=== PATIENT | female | born 1950 | race Caucasian/White ===

== ENCOUNTER → 2022-02-22 | Outpatient (CLI) | LOC: M SOG 10:23 | PROVIDERS: ATTEND Physician Assistant | DX: M85.811 Other specified disorders of bone density and structure, right shoulder (principal); M85.812 Other specified disorders of bone density and structure, left shoulder; M19.011 Primary osteoarthritis, right shoulder; M19.012 Primary osteoarthritis, left shoulder ==

== ENCOUNTER 2022-03-23 06:11 | Observation (INO) | payer MEDICARE, OTHER ==
[~2022-03-23] VITALS: Ht 172.7 cm; Wt 103.5 kg
[~2022-03-23 06:11] MED LIST: AMLO1TAB24 PO; ASPI81TA26 PO; ATOR1TAB19 PO; AZAT50TA37 PO; CALC-218 PO; HYDR-3490 PO; HYDR200T3 PO; IBUP200C25 PO; LISI40TA4 PO; METF-839 PO; METF500T13 PO; POLYOPD OP; POTA1TAB14 PO; PRED20TA PO; ceFAZolin SOD 2 GM in IV 1 EA IV ONE
[2022-03-23] MEDS ORDERED: LR 1,000 ML IV SCH ×2 (06:40→11:15)
[2022-03-23] MEDS ORDERED: INSULIN LISPRO (NovoLOG) PER UNIT SC PRN (06:40)
[2022-03-23] MEDS ORDERED: fentaNYL 100 MCG/2 ML INJECTION IV PRN ×2 (07:01→11:15)
[2022-03-23] MEDS ORDERED: SCOPOLAMINE 1MG TRANSDERMAL PATCH TOP ONE (07:15)
[2022-03-23] MEDS ORDERED: VANCOMYCIN 1000MG/20ML VIAL As Ordered ONE (07:17)
[2022-03-23] MEDS ORDERED: LIDOCAINE W/EPINEPHRINE 1% 20ML VIAL As Ordered ONE (07:17)
[2022-03-23] MEDS ORDERED: TRANEXAMIC ACID 100 MG/ML 10ML VIAL As Ordered ONE (07:17)
[2022-03-23] MEDS ORDERED: SODIUM BICARBONATE 4.2% INJ 10ML SYRINGE As Ordered ONE (07:18)
[2022-03-23] MEDS ORDERED: ROPIvacaine 0.5% 30ML INJECTION (J2795 PER 1MG) XX ONE (07:20)
[2022-03-23] MEDS ORDERED: LIDOCAINE 1% MDV 20ML VIAL XX ONE (07:20)
[2022-03-23] MEDS ORDERED: EPINEPHrine INJ 1 MG/ML 1ML AMP XX ONE (07:20)
[2022-03-23] MEDS: MIDAZOLAM INJ 2MG/2ML VIAL (J2250 PER 1MG) IV PRN ×2 (07:32→07:36)
[2022-03-23] MEDS ORDERED: propofoL 200 MG/20 ML VIAL As Ordered ONE (09:05)
[2022-03-23] MEDS ORDERED: ONDANSETRON 4MG 2ML VIAL As Ordered ONE (09:05)
[2022-03-23] MEDS ORDERED: fentaNYL 100 MCG/2 ML INJECTION As Ordered ONE (09:05)
[2022-03-23] MEDS ORDERED: LIDOCAINE 2% 100MG/5ML SDV (FOR ANES.) As Ordered ONE (09:05)
[2022-03-23] MEDS ORDERED: ROCURONIUM BROMIDE 50 MG/5 ML VIAL As Ordered ONE ×2 (09:05→09:24)
[2022-03-23] MEDS ORDERED: ACETAMINOPHEN 1000MG 100ML IV BTL (OFIRMEV) (J0131 PER 10MG) As Ordered ONE (09:21)
[2022-03-23] MEDS ORDERED: SUGAMMADEX SODIUM 500 MG/5 ML VIAL (BRIDION) As Ordered ONE (09:21)
[2022-03-23] MEDS ORDERED: KETOROLAC 60MG 2ML VIAL As Ordered ONE (11:04)
[2022-03-23] MEDS ORDERED: MEPERIDINE INJ 25 MG/ML VIAL (J2175) IV PRN (11:15)
[2022-03-23] MEDS ORDERED: HYDROMORPHONE HCL 0.5 MG/ 0.5 ML SYRINGE (J1170 PER 1) IV PRN (11:15)
[2022-03-23] MEDS ORDERED: PROMETHAZINE 25MG/ML 1ML VIAL IV PRN (11:15)
[2022-03-23] MEDS ORDERED: ONDANSETRON 4MG 2ML VIAL IV PRN ×2 (11:15→12:45)
[2022-03-23] MEDS ORDERED: HYDROmorphone HCL 2MG/ML 1ML VIAL As Ordered ONE (11:18)
[2022-03-23] MEDS ORDERED: ACETAMINOPHEN TAB 650MG DOSE (2X325MG) PO PRN ×2 (12:20→12:45)
[2022-03-23] MEDS ORDERED: NORCO, ANEXSIA 5/325MG TABLET (HYDROcodone/ACETAMINOPHEN) PO PRN ×2 (12:45)
[2022-03-23 13:30] VITALS: BP 144/80
[2022-03-23 13:31] LABS: HEMATOCRIT 32.3 % (36.0-47.0); HEMOGLOBIN 10.3 g/dl (12.0-15.5); MEAN CORPUSCULAR HEMOGLOBIN 30.7 pg (27.0-33.0); MEAN CORPUSCULAR HGB CONC 31.9 g/dl (32.0-36.5); MEAN CORPUSCULAR VOLUME 96.4 fl (80.0-96.0); PLATELET COUNT, AUTOMATED 273 10^3/uL (150-450); RED BLOOD COUNT 3.35 10^6/uL (4.00-5.40); WHITE BLOOD COUNT 15.3 10^3/uL (4.0-10.0)
[2022-03-23] MEDS ORDERED: GLUCAGON INJ 1MG VIAL SC PRN (13:35)
[2022-03-23] MEDS ORDERED: DEXTROSE 50% 50 ML SYRINGE IV PRN (13:35)
[2022-03-23] MEDS ORDERED: GLUCOSE 4GM CHEW TABLET PO PRN (13:35)
[2022-03-23 14:00] VITALS: BP 120/74
[2022-03-23 14:03] LABS: BLOOD UREA NITROGEN 31 MG/DL (7-18); CALCIUM LEVEL 8.9 MG/DL (8.8-10.2); CARBON DIOXIDE LEVEL 22 MEQ/L (21-32); CHLORIDE LEVEL 105 MEQ/L (98-107); CREATININE FOR GFR 0.94 MG/DL (0.55-1.30); GLOMERULAR FILTRATION RATE > 60.0 (>45); GLUCOSE, FASTING 200 MG/DL (70-100); POTASSIUM SERUM 3.9 MEQ/L (3.5-5.1); SODIUM LEVEL 141 MEQ/L (136-145)
[2022-03-23 15:00] VITALS: BP 120/73
[2022-03-23 16:00] VITALS: BP 131/81
[2022-03-23] MEDS ORDERED: ceFAZolin SOD 1 GM in D5W MINI-BAG PLUS 50 ML IV SCH (16:00)
[2022-03-23] MEDS ORDERED: INSULIN LISPRO (NovoLOG) PER UNIT SC SCH ×2 (17:30→21:00)
[2022-03-23] MEDS ORDERED: KETOROLAC 30 MG/ML 1ML VIAL IV SCH (18:00)
[2022-03-23] MEDS ORDERED: DOCUSATE SODIUM 100MG CAPSULE PO SCH (21:00)
[2022-03-24] MEDS ORDERED: IBUPROFEN 600MG TAB PO PRN (18:00)
== END 2022-03-23 18:10 | disposition home or self-care (01) ==
LOC: M SDC 06:11 → M MS5PR 06:12 → UNDOADMOB 18:10 → M MS5PR 18:10 → M SDC 18:10 → M MS5PR 18:10
PROVIDERS: ADMIT Family Medicine; ATTEND Family Medicine
DX: M19.012 Primary osteoarthritis, left shoulder (principal); I10 Essential (primary) hypertension; E78.2 Mixed hyperlipidemia; R73.01 Impaired fasting glucose; M32.9 Systemic lupus erythematosus, unspecified; R09.02 Hypoxemia; Z79.899 Other long term (current) drug therapy; Z79.84 Long term (current) use of oral hypoglycemic drugs; Z79.82 Long term (current) use of aspirin; Z79.52 Long term (current) use of systemic steroids; Z88.5 Allergy status to narcotic agent
CPT/HCPCS: 23472; 36415; 64415; 73020; 80048; 85027; 88304; 88311; 97116; 97162; 97165; 97530; 97535; C1713; C1776; G0378; J0131; J0690; J1170; J1885; J2250; J2405; J3010; J3370

== ENCOUNTER → 2022-04-01 | Outpatient (CLI) | payer MEDICARE, OTHER ==
[~2022-04-01] MED LIST changes: -ceFAZolin SOD 2 GM in IV 1 EA IV ONE
== END ==
LOC: M SOG 09:00
PROVIDERS: ATTEND Orthopaedic Surgery Hand Surgery
DX: M19.012 Primary osteoarthritis, left shoulder (principal); Z96.612 Presence of left artificial shoulder joint

== ENCOUNTER → 2022-04-25 | Outpatient (CLI) | payer MEDICARE, OTHER | LOC: M SOG 08:07 | PROVIDERS: ATTEND Orthopaedic Surgery Hand Surgery | DX: M19.012 Primary osteoarthritis, left shoulder (principal); M19.011 Primary osteoarthritis, right shoulder; M16.0 Bilateral primary osteoarthritis of hip; Z96.612 Presence of left artificial shoulder joint ==

== ENCOUNTER → 2022-07-12 | Outpatient (CLI) | payer MEDICARE, OTHER | LOC: M SOG 11:41 | PROVIDERS: ATTEND Orthopaedic Surgery Hand Surgery | DX: Z47.89 Encounter for other orthopedic aftercare (principal); Z96.612 Presence of left artificial shoulder joint ==

== ENCOUNTER 2022-10-19 06:12 | Day surgery (SDC) | payer MEDICARE, OTHER ==
[~2022-10-19] VITALS: Ht 172.7 cm; Wt 104.7 kg
[~2022-10-19 06:12] MED LIST changes: +CARV12.5 PO; +ENTR1TAB PO; +FURO40TA2 PO; +MELA5CAP2 PO
[2022-10-19] MEDS ORDERED: TRANEXAMIC ACID 100 MG/ML 10ML VIAL As Ordered ONE (06:39)
[2022-10-19] MEDS ORDERED: LIDOCAINE W/EPINEPHRINE 1% 20ML VIAL As Ordered ONE (06:39)
[2022-10-19] MEDS ORDERED: VANCOMYCIN 1000MG/20ML VIAL As Ordered ONE (06:39)
[2022-10-19] MEDS ORDERED: ROCURONIUM BROMIDE 50MG/5ML VIAL As Ordered ONE (07:09)
[2022-10-19] MEDS ORDERED: propofoL 200 MG/20 ML VIAL As Ordered ONE (07:09)
[2022-10-19] MEDS ORDERED: LIDOCAINE 2% 100MG/5ML SDV (FOR ANES.) As Ordered ONE (07:09)
[2022-10-19] MEDS ORDERED: SUGAMMADEX SODIUM 500 MG/5 ML VIAL (BRIDION) As Ordered ONE (07:09)
[2022-10-19] MEDS ORDERED: ONDANSETRON 4MG 2ML VIAL As Ordered ONE ×2 (07:09→10:47)
[2022-10-19] MEDS ORDERED: ACETAMINOPHEN 1000MG 100ML IV BAG As Ordered ONE (07:10)
[2022-10-19] MEDS ORDERED: MIDAZOLAM INJ 2MG/2ML VIAL As Ordered ONE (07:10)
[2022-10-19] MEDS ORDERED: fentaNYL 100 MCG/2 ML INJECTION As Ordered ONE (07:10)
[2022-10-19] MEDS ORDERED: fentaNYL 100 MCG/2 ML INJECTION IV PRN ×2 (07:20→10:45)
[2022-10-19] MEDS ORDERED: ROPIvacaine 0.5% 30ML VIAL PN ONE (07:20)
[2022-10-19] MEDS ORDERED: LIDOCAINE 1% SDV 5ML VIAL PN ONE (07:20)
[2022-10-19] MEDS ORDERED: ceFAZolin SOD 2 GM in IV 1 EA IV ONE (07:25)
[2022-10-19] MEDS ORDERED: BUPIVACAINE HCL 0.25% 30ML VIAL As Ordered ONE (07:33)
[2022-10-19] MEDS ORDERED: LIDOCAINE 1% MDV 20ML VIAL As Ordered ONE (07:33)
[2022-10-19] MEDS ORDERED: SODIUM BICARBONATE 8.4% INJ 50MEQ 50ML VIAL As Ordered ONE (07:33)
[2022-10-19] MEDS ORDERED: methylPREDNISolone SUSP 40MG/ML 1ML VIAL (DEPO MEDROL) As Ordered ONE ×2 (07:34→10:08)
[2022-10-19] MEDS ORDERED: ISOVUE-M 300 61% 15ML VIAL As Ordered ONE (07:34)
[2022-10-19] MEDS: MIDAZOLAM INJ 2MG/2ML VIAL IV PRN ×2 (07:40→07:43)
[2022-10-19] MEDS ORDERED: LR 1,000 ML IV SCH ×2 (07:45→10:45)
[2022-10-19] MEDS ORDERED: ceFAZolin 2 GM/D5W 50 ML IV BAG As Ordered ONE (07:54)
[2022-10-19] MEDS ORDERED: ePHEDrine SULFATE 25 MG/5 ML(5MG/ML) SYRINGE As Ordered ONE (10:04)
[2022-10-19] MEDS ORDERED: PHENYLEPHRINE 10MG/ML 1ML VIAL As Ordered ONE (10:04)
[2022-10-19] MEDS ORDERED: IBUPROFEN 600MG TAB PO PRN (10:45)
[2022-10-19] MEDS ORDERED: MORPHINE 4 MG/ML 1ML VIAL IV PRN (10:45)
[2022-10-19] MEDS ORDERED: ONDANSETRON 4MG 2ML VIAL IV PRN (10:45)
[2022-10-19] MEDS ORDERED: oxyCODONE 5MG TAB PO PRN ×2 (10:45)
[2022-10-19] MEDS ORDERED: ACETAMINOPHEN TAB 650MG DOSE (2X325MG) PO PRN (10:45)
[2022-10-19] MEDS ORDERED: MORPHINE 2 MG/ML 1ML VIAL IV PRN (10:45)
[2022-10-19] MEDS ORDERED: METOCLOPRAMIDE INJ 10MG/2ML VIAL IV ONE (11:00)
[2022-10-19] MEDS ORDERED: INSULIN LISPRO (NovoLOG) PER UNIT SC PRN (11:25)
[2022-10-19] MEDS ORDERED: ONDANSETRON 4MG 2ML VIAL IV ONE (11:45)
[2022-10-19 14:45] VITALS: BP 135/85
[2022-10-19] MEDS ORDERED: ceFAZolin SOD 1 GM in D5W MINI-BAG PLUS 50 ML IV SCH (16:00)
[2022-10-20] MEDS ORDERED: ENOXAPARIN 40MG/0.4ML SYRINGE (J1650 PER 10MG) SC SCH (09:00)
== END 2022-10-19 15:21 | disposition home or self-care (01) ==
LOC: M SDC 06:12
PROVIDERS: ATTEND Orthopaedic Surgery Hand Surgery
DX: M19.011 Primary osteoarthritis, right shoulder (principal); M16.12 Unilateral primary osteoarthritis, left hip; E11.9 Type 2 diabetes mellitus without complications; L93.0 Discoid lupus erythematosus; Z79.84 Long term (current) use of oral hypoglycemic drugs; Z79.899 Other long term (current) drug therapy; Z91.09 Other allergy status, other than to drugs and biological substances
CPT/HCPCS: 20611; 23472; 64415; 73020; 76000; C1713; C1776; J1100; J1815; J2370; J2405; Q9967

== ENCOUNTER → 2022-10-28 | Outpatient (CLI) | payer MEDICARE, OTHER | LOC: M SOG 13:35 | PROVIDERS: ATTEND Physician Assistant | DX: M25.811 Other specified joint disorders, right shoulder (principal) ==

== ENCOUNTER → 2022-12-15 | Outpatient (CLI) | payer MEDICARE, OTHER | LOC: M SOG 09:28 | PROVIDERS: ATTEND Physician Assistant | DX: Z47.1 Aftercare following joint replacement surgery (principal) ==